=== PATIENT | male | born 1985 | race Caucasian/White ===

== ENCOUNTER 2018-06-03 20:59 | Emergency (ER) | payer OTHER | END 2018-06-03 22:30 | disposition home or self-care (01) | LOC: ER 20:59 | DX: M54.2 Cervicalgia (principal); F17.200 Nicotine dependence, unspecified, uncomplicated; V43.52XA Car driver injured in collision with other type car in traffic accident, initial encounter; Y93.89 Activity, other specified; Y92.488 Other paved roadways as the place of occurrence of the external cause; Y99.8 Other external cause status | CPT/HCPCS: 72040; 99284 ==

== ENCOUNTER 2021-09-14 11:52 | Emergency (ER) | payer OTHER ==
[~2021-09-14] VITALS: Ht 170.2 cm; Wt 88.9 kg
[~2021-09-14 11:52] MED LIST: CYCL10TA19 PO
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
[2021-09-14 13:48] VITALS: BP 130/84
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
[2021-09-14] MEDS ORDERED: NAPR-514 PO (14:36)
[2021-09-14] MEDS ORDERED: CYCL10TA19 PO (14:36)
== END 2021-09-14 14:40 | disposition home or self-care (01) ==
LOC: ER 11:52
DX: S13.9XXA Sprain of joints and ligaments of unspecified parts of neck, initial encounter (principal); S23.9XXA Sprain of unspecified parts of thorax, initial encounter; M54.59 Other low back pain; F17.200 Nicotine dependence, unspecified, uncomplicated; V89.2XXA Person injured in unspecified motor-vehicle accident, traffic, initial encounter; Y93.I9 Activity, other involving external motion; Y92.89 Other specified places as the place of occurrence of the external cause; Y99.8 Other external cause status
CPT/HCPCS: 72040; 72072; 72100; 99284